=== PATIENT | female | born 1940 | race Caucasian/White ===

== ENCOUNTER 2019-06-07 20:17 | Observation (INO) | payer MEDICARE ==
[2019-06-07] MEDS ORDERED: METHYLPREDNISOLONE INJ 125 MG/2 ML SDV IV ONE (20:40)
[2019-06-07] MEDS ORDERED: EPINEPHRINE INJ/PF 1 MG/1 ML AMPULE IM ONE ×3 (20:41→20:42)
[2019-06-07] MEDS ORDERED: FAMOTIDINE INJ/PF 20 MG/2 ML SDV IV ONE (20:41)
[2019-06-07] MEDS ORDERED: DIPHENHYDRAMINE HCL 50 MG/ML VIAL IV ONE (20:41)
[2019-06-07] MEDS ORDERED: NORMAL SALINE 1000 ML 1,000 ML IV ONE (20:42)
--- NOTE | 2019-06-07 20:43 | ER Document Report ---
ED Allergic Reaction - General Chief Complaint: Allergic Reaction Stated Complaint: POSSIBLE ALLERGIC REACTION Time Seen by Provider: 06/07/19 20:39 Mode of Arrival: Ambulatory Information source: Patient TRAVEL OUTSIDE OF THE [place] IN LAST 30 DAYS: No - HPI Patient complains to provider of: Tongue swelling and difficulty breathing after eating shrimp. Onset: Just prior to arrival Onset/Duration: Sudden Quality of pain: No pain Pain Level: Denies Identified cause: Yes - Shrimp Food exposure: Shrimp Skin rash / itching: "Redness", "Hives" Swelling: Lip(s), Tongue, Throat Trouble swallowing / speaking: Severe Associated symptoms: Other - Difficulty breathing. Similar symptoms previously: Yes Recently seen / treated by doctor: No - Related Data Allergies/Adverse Reactions: morphine Adverse Reaction (Verified 06/07/19 20:45) shellfish derived Adverse Reaction (Verified 06/07/19 20:45) shrimp Adverse Reaction (Verified 06/07/19 20:45) Sulfa (Sulfonamide Antibiotics) Adverse Reaction (Verified 06/07/19 20:45) Past Medical History - General Information source: Patient - Social History Smoking Status: Never Smoker Family History: Reviewed & Not Pertinent Review of Systems - Review of Systems Constitutional: No symptoms reported EENT: Throat swelling, Mouth swelling, Other - Tongue swelling. Cardiovascular: No symptoms reported Respiratory: Short of breath Gastrointestinal: No symptoms reported Genitourinary: No symptoms reported Female Genitourinary: No symptoms reported Musculoskeletal: No symptoms reported Skin: No symptoms reported Hematologic/Lymphatic: No symptoms reported Neurological/Psychological: No symptoms reported -: Yes All other systems reviewed and negative Physical Exam - Vital signs Vitals: Resp Pulse Ox 19 92 06/07/19 20:20 06/07/19 20:20 Interpretation: Normal - General General appearance: Appears well, Alert In distress: Mild - HEENT Head: Normocephalic, Atraumatic Eyes: Normal Conjunctiva: Normal Cornea: Normal Extraocular movements intact: Yes Eyelashes: Normal Pupils: PERRL Mouth/Lips: Angioedema Mucous membranes: Normal Pharynx: Uvular edema, Other - Edema of the soft palate. Neck: Normal - Respiratory Respiratory status: No respiratory distress Chest status: Nontender Breath sounds: Normal Chest palpation: Normal - Cardiovascular Rhythm: Regular Heart sounds: Normal auscultation Murmur: No - Abdominal Inspection: Normal Distension: No distension Bowel sounds: Normal Tenderness: Nontender Organomegaly: No organomegaly - Back Back: Normal, Nontender - Extremities General upper extremity: Normal inspection, Nontender, Normal color, Normal ROM, Normal temperature General lower extremity: Normal inspection, Nontender, Normal color, Normal ROM, Normal temperature, Normal weight bearing. No: Jannie's sign - Neurological Neuro grossly intact: Yes Cognition: Normal Orientation: AAOx4 [place] Coma Scale Eye Opening: Spontaneous [place] Coma Scale Verbal: Oriented [place] Coma Scale Motor: Obeys Commands [place] Coma Scale Total: 15 Speech: Normal Motor strength normal: LUE, RUE, LLE, RLE Sensory: Normal - Psychological Associated symptoms: Normal affect, Normal mood - Skin Skin Temperature: Warm Skin Moisture: Dry Skin Color: Normal Course - Re-evaluation Re-evalutation: 06/07/19 22:33 On reevaluation patient is feeling much better. She will be admitted to the hospital for observation. - Vital Signs Vital signs: Temp Pulse Resp BP Pulse Ox 97.7 F 15 128/63 H 96 06/07/19 20:22 06/08/19 01:01 06/08/19 01:00 06/08/19 01:01 - Laboratory Result Diagrams: 06/07/19 20:10 06/07/19 20:10 Laboratory results interpreted by me: 06/07/19 06/07/19 20:10 20:10 WBC 11.5 H Lymphocytes % 45.1 H Absolute Lymphocytes 5.2 H Potassium 3.1 L Glucose 167 H - Transfer of Care Notes: 06/07/19 21:37 Patient will be admitted by the hospitalist on-call Dr. Ely for observation. Critical Care Note - Critical Care Note Total time excluding time spent on procedures (mins): 50 Discharge - Discharge Clinical Impression: Allergic reaction, Angioedema, Allergic reaction to food Condition: Stable Disposition: ADMITTED INPATIENT Admitting Provider: Jhoana (Hospitalist) Unit Admitted: [facility]
[2019-06-07 20:48] LABS: ABSOLUTE BASOPHILS # (AUTO) 0.1 10^3/uL (0.0-0.2); ABSOLUTE EOSINOPHILS # (AUTO) 0.6 10^3/uL (0.0-0.6); ABSOLUTE LYMPHOCYTES (AUTO) 5.2 10^3/uL (0.5-4.7); ABSOLUTE MONOCYTES (AUTO) 0.6 10^3/uL (0.1-1.4); BASOPHILS % (AUTO) 0.7 % (0-2); EOSINOPHILS % (AUTO) 5.3 % (0-6); HEMATOCRIT 41.5 % (36.0-47.0); HEMOGLOBIN 14.4 g/dL (12.0-15.5); LYMPHOCYTES % (AUTO) 45.1 % (13-45); MEAN CORPUSCULAR HGB CONC 34.5 g/dL (32.0-36.0); MEAN CORPUSCULAR VOLUME 90 fl (80-97); MONOCYTES % (AUTO) 5.4 % (3-13); PLATELET COUNT 202 10^3/uL (150-450); RED BLOOD COUNT 4.63 10^6/uL (3.72-5.28); RED CELL DISTRIBUTION WIDTH 12.5 % (11.5-14.0); SEGMENTED NEUTROPHILS % (AUTO) 43.5 % (42-78); TOTAL CELLS COUNTED % (AUTO) 100 %; WHITE BLOOD COUNT 11.5 10^3/uL (4.0-10.5)
[2019-06-07 20:58] LABS: ALANINE AMINOTRANSFERASE 35 U/L (9-52); ALKALINE PHOSPHATASE 62 U/L (38-126); ANION GAP 11 (5-19); ASPARTATE AMINO TRANSFERASE 34 U/L (14-36); BILIRUBIN,DIRECT 0.4 mg/dL (0.0-0.4); BILIRUBIN,TOTAL 0.6 mg/dL (0.2-1.3); BLOOD UREA NITROGEN 19 mg/dL (7-20); CALCIUM 9.6 mg/dL (8.4-10.2); CARBON DIOXIDE 27 mmol/L (22-30); CHLORIDE 100 mmol/L (98-107); GLUCOSE 167 mg/dL (75-110); POTASSIUM 3.1 mmol/L (3.6-5.0); SODIUM 137.5 mmol/L (137-145); TOTAL PROTEIN 6.7 g/dL (6.3-8.2)
[2019-06-07] MEDS ORDERED: ONDANSETRON HCL INJ/PF 4 MG/2 ML SDV ONE (20:58)
[2019-06-07] MEDS ORDERED: ONDANSETRON HCL INJ/PF 4 MG/2 ML SDV IV ONE (20:58)
[2019-06-07] MEDS ORDERED: MAGNESIUM HYDROXIDE SUSP 30 ML UDCUP PO PRN (21:40)
[2019-06-07] MEDS ORDERED: MAG HYDROX/AL HYDROX/SIMETH SUSP 30 ML UDCUP PO PRN (21:40)
[2019-06-07] MEDS ORDERED: ONDANSETRON HCL INJ/PF 4 MG/2 ML SDV IV PRN (21:40)
[2019-06-07] MEDS ORDERED: NALBUPHINE HCL INJ 10 MG/1 ML AMPULE IV PRN (21:48)
[2019-06-07] MEDS ORDERED: FAMOTIDINE INJ/PF 20 MG/2 ML SDV IV SCH (22:00)
[2019-06-07 22:16] LABS: INTERNATIONAL RATION (INR) 1.06; PROTHROMBIN TIME 13.8 SEC (11.4-15.4)
[2019-06-07 22:17] LABS: PARTIAL THROMBOPLASTIN TIME 24.2 SEC (23.5-35.8)
[2019-06-07] MEDS: HEPARIN SOD (PORCINE) 5,000 UNIT/ML 1 ML SYRINGE SUBCUT SCH (23:16)
--- NOTE | 2019-06-08 02:14 | PDOC H&P ---
History of Present Illness Admission Date/PCP: 06/07/2019 21:24 No local PCP Patient complains of: Allergic reaction History of Present Illness: OLGA ORDONEZ is a 78 year old female who presents the emergency room with an acute allergic reaction. Patient admits that she went out tonight with her family and friends and she had a flounder sandwich but also ate one shrimp. She acknowledges that she has a shellfish allergy. She admits that approximately an hour after eating while she was walking on the peer with her family she developed sudden severe swelling in her tongue and started experiencing severe dyspnea. She admits prior similar but much less severe episodes. She denies any other accompanying or associated signs or symptoms. She has not identified any additional aggravating or ameliorating factors for her allergic reaction. In the emergency room she was found to have severe angioedema of her tongue and posterior oropharynx including the uvula. She was treated with epinephrine, Solu-Medrol and Benadryl. Because of her severe reaction and incomplete resolution she was subsequently admitted to the observation status for further evaluation and treatment. Past Medical History Cardiac Medical History: Reports: Coronary Artery Disease, Hyperlipidema, Hypertension Pulmonary Medical History: Denies: Asthma, Chronic Obstructive Pulmonary Disease (COPD) EENT Medical History: Reports: Cataracts Denies: Ears - Hearing aids Neurological Medical History: Denies: Hemorrhagic CVA, Ischemic CVA, Seizures Endocrine Medical History: Denies: Diabetes Mellitus Type 1, Diabetes Mellitus Type 2, Hyperthyroidism, Hypothyroidism, Obesity Renal/ Medical History: Denies: Chronic Kidney Disease, Nephrolithiasis Malignancy Medical History: Reports: None GI Medical History: Denies: Cirrhosis, Hepatitis Musculoskeltal Medical History: Reports: Arthritis - Degenerative disc disease Denies: Fibromyalgia, Gout Skin Medical History: Denies: Eczema, Psoriasis Psychiatric Medical History: Denies: Alcohol Dependency, Substance Abuse, Tobacco Dependency Traumatic Medical History: Reports: None Hematology: Denies: Anemia, Bleeding Tendencies Infectious Medical History: Reports: None Past Surgical History Past Surgical History: Reports: Cardiac Catheterization, Cholecystectomy, Coronary Stent, Hysterectomy, Other Social History Information Source: Patient Lives with: Spouse/Significant other Smoking Status: Never Smoker Frequency of Alcohol Use: None Hx Recreational Drug Use: No Drugs: None Hx Prescription Drug Abuse: No - Advance Directive Resuscitation Status: Full Code Surrogate healthcare decision maker:: Hilda Milton Family History Family History: CAD, DM, Hypertension, Malignancy Parental Family History Reviewed: Yes Children Family History Reviewed: No Sibling(s) Family History Reviewed.: Yes Medication/Allergy Allergies/Adverse Reactions: morphine Adverse Reaction (Verified 06/07/19 20:45) shellfish derived Adverse Reaction (Verified 06/07/19 20:45) shrimp Adverse Reaction (Verified 06/07/19 20:45) Sulfa (Sulfonamide Antibiotics) Adverse Reaction (Verified 06/07/19 20:45) Review of Systems Constitutional: ABSENT: chills, fever(s) Eyes: ABSENT: visual disturbances, other - Eye pain Ears: ABSENT: hearing changes, other - Ear pain Nose, Mouth, and Throat: ABSENT: mouth pain, sore throat Cardiovascular: ABSENT: chest pain, edema, palpitations Respiratory: PRESENT: as per HPI, dyspnea. ABSENT: cough Gastrointestinal: ABSENT: abdominal pain, constipation, diarrhea, nausea, vomiting Genitourinary: ABSENT: dysuria, hematuria Musculoskeletal: ABSENT: back pain, joint swelling, muscle weakness Integumentary: PRESENT: as per HPI, other - Angioedema of her tongue and mouth. ABSENT: pruritus, rash Neurological: ABSENT: confusion, convulsions, focal weakness, memory loss, syncope Psychiatric: ABSENT: anxiety, depression Endocrine: ABSENT: cold intolerance, heat intolerance Hematologic/Lymphatic: ABSENT: easy bleeding, easy bruising Physical Exam Vital Signs: Temp Pulse Resp BP Pulse Ox 97.7 F 18 164/117 H 98 06/07/19 20:22 06/07/19 21:05 06/07/19 20:46 06/07/19 21:05 Intake & Output 06/05/19 06/06/19 06/07/19 23:59 23:59 23:59 Intake Total 1000 Balance 1000 Weight 68.4 kg General appearance: PRESENT: no acute distress, cooperative Head exam: PRESENT: atraumatic, normocephalic Eye exam: PRESENT: conjunctiva pink. ABSENT: conjunctival injection, scleral icterus Ear exam: PRESENT: normal external ear exam. ABSENT: bleeding, drainage Mouth exam: PRESENT: dry mucosa, neck supple, tongue midline, other - Glossal angioedema 1+ Throat exam: PRESENT: other - Minimal posterior pharyngeal angioedema change at this time. ABSENT: post pharyngeal erythema Neck exam: ABSENT: JVD, thyromegaly, tracheal deviation Respiratory exam: PRESENT: clear to auscultation fartun, symmetrical, unlabored Cardiovascular exam: PRESENT: RRR. ABSENT: clicks, gallop, rubs Pulses: PRESENT: normal radial pulses, normal dorsalis pedis pul GI/Abdominal exam: PRESENT: normal bowel sounds, soft Rectal exam: PRESENT: deferred Extremities exam: ABSENT: joint swelling, pedal edema Musculoskeletal exam: PRESENT: full ROM, normal inspection. ABSENT: tenderness Neurological exam: PRESENT: alert, oriented to person, oriented to place, oriented to time, oriented to situation, CN II-XII grossly intact. ABSENT: motor sensory deficit Psychiatric exam: PRESENT: appropriate affect, normal mood Skin exam: PRESENT: dry, intact, warm, other - Angioedema of the tongue is noted. ABSENT: jaundice, rash Results Laboratory Results: 06/07/19 20:10 06/07/19 20:10 06/07/19 06/07/19 20:10 20:10 WBC 11.5 H RBC 4.63 Hgb 14.4 Hct 41.5 MCV 90 MCH 31.0 MCHC 34.5 RDW 12.5 Plt Count 202 Seg Neutrophils % 43.5 Lymphocytes % 45.1 H Monocytes % 5.4 Eosinophils % 5.3 Basophils % 0.7 Absolute Neutrophils 5.0 Absolute Lymphocytes 5.2 H Absolute Monocytes 0.6 Absolute Eosinophils 0.6 Absolute Basophils 0.1 Sodium 137.5 Potassium 3.1 L Chloride 100 Carbon Dioxide 27 Anion Gap 11 BUN 19 Creatinine 0.82 Est GFR ( Amer) > 60 Est GFR (Non-Af Amer) > 60 Glucose 167 H Calcium 9.6 Total Bilirubin 0.6 AST 34 ALT 35 Alkaline Phosphatase 62 Total Protein 6.7 Albumin 4.0 Assessment and Plan - Diagnosis (1) Angioedema due to seafood allergy Qualifiers: Encounter type: initial encounter Qualified Code(s): T78.3XXA - Angioneurotic edema, initial encounter Is this a current diagnosis for this admission?: Yes Plan: Patient is placed in observation status. She will be monitored closely for any airway complications that might occur due to her angioedema. She will be treate d with Benadryl 25 mg IV every 4 hours and Solu-Medrol 40 mg IV every 4 hours. (2) HTN (hypertension) Qualifiers: Hypertension type: essential hypertension Qualified Code(s): I10 - Essential (primary) hypertension Is this a current diagnosis for this admission?: Yes Plan: Patient be continued on her usual antihypertensive medications. Her blood pressure will be observed closely throughout her hospital course. (3) HLD (hyperlipidemia) Qualifiers: Hyperlipidemia type: unspecified Qualified Code(s): E78.5 - Hyperlipidemia, unspecified Is this a current diagnosis for this admission?: Yes Plan: Patient be continued on her usual hyperlipidemia regimen. (4) CAD (coronary artery disease) Qualifiers: Coronary Disease-Associated Artery/Lesion type: [place] artery [place] vs. transplanted heart: [place] heart Associated angina: without angina Qualified Code(s): I25.10 - Atherosclerotic heart disease of [place] coronary artery without angina pectoris Is this a current diagnosis for this admission?: Yes Plan: Patient be treated with her usual coronary artery disease medical regimen. She will be on a heart healthy diet during her hospital stay. - Time Time Spent with patient: 25-34 minutes Medications reviewed and adjusted accordingly: Yes Anticipated discharge: Home - Inpatient Certification Based on my medical assessment, after consideration of the patient's comorbidities, presenting symptoms, or acuity I expect that the services needed warrant INPATIENT care.: No I certify that my determination is in accordance with my understanding of Medicare's requirements for reasonable and necessary INPATIENT services [42 CFR 412.3e].: No Medical Necessity: Need Close Monitoring Due to Risk of Patient Decompensation, Need For Continuous Telemetry Monitoring, Risk of Complication if Not Cared For in Hospital
--- NOTE | 2019-06-08 02:16 | ADVANCED CARE ---
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 Resuscitation Status: Full Code Discussion: After several minutes of discussion the patient was concluded that she would prefer to be full code for resuscitation status throughout this hospital stay. Furthermore she has designated Hilda Milton as her surrogate medical decision- maker. Care Planning Goals: 1. Patient is full CODE STATUS for the current hospitalization. 2. Hilda Milton is the patient's designated surrogate medical decision-maker. Document(s) Completed: The following entries will be made to the patient's permanent medical record, current medical record and current orders via EMR entry: 1. Patient is full CODE STATUS for the current hospitalization. 2. Hilda Milton is the patient's designated surrogate medical decision-maker. Time Spent: 16 minutes
[2019-06-08] MEDS: METHYLPREDNISOLONE INJ 40 MG/1 ML SDV IV SCH ×2 (02:56→05:39)
[2019-06-08] MEDS: DIPHENHYDRAMINE HCL 50 MG/ML VIAL IV SCH ×2 (02:57→05:39)
[2019-06-08] MEDS: HEPARIN SOD (PORCINE) 5,000 UNIT/ML 1 ML SYRINGE SUBCUT SCH (05:38)
[2019-06-08 05:52] LABS: HEMATOCRIT 35.9 % (36.0-47.0); HEMOGLOBIN 12.5 g/dL (12.0-15.5); MEAN CORPUSCULAR HGB CONC 34.8 g/dL (32.0-36.0); MEAN CORPUSCULAR VOLUME 89 fl (80-97); PLATELET COUNT 160 10^3/uL (150-450); RED BLOOD COUNT 4.03 10^6/uL (3.72-5.28); RED CELL DISTRIBUTION WIDTH 12.5 % (11.5-14.0)
[2019-06-08 06:14] LABS: ALANINE AMINOTRANSFERASE 34 U/L (9-52); ALBUMIN 3.4 g/dL (3.5-5.0); ALKALINE PHOSPHATASE 54 U/L (38-126); ANION GAP 8 (5-19); ASPARTATE AMINO TRANSFERASE 44 U/L (14-36); BILIRUBIN,DIRECT 0.3 mg/dL (0.0-0.4); BILIRUBIN,TOTAL 0.5 mg/dL (0.2-1.3); BLOOD UREA NITROGEN 19 mg/dL (7-20); CALCIUM 9.4 mg/dL (8.4-10.2); CARBON DIOXIDE 27 mmol/L (22-30); CHLORIDE 104 mmol/L (98-107); GLUCOSE 178 mg/dL (75-110); POTASSIUM 3.4 mmol/L (3.6-5.0); SODIUM 139.3 mmol/L (137-145); TOTAL PROTEIN 5.6 g/dL (6.3-8.2)
--- NOTE | 2019-06-08 06:49 | PDOC DISCHARGE SUMMARY ---
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 She is therefore discharged home in improved and stable condition. (2) HTN (hypertension) Is this a current diagnosis for this admission?: Yes Summary: This problem has been stable. (3) HLD (hyperlipidemia) Is this a current diagnosis for this admission?: Yes Summary: Problem has been stable. (4) CAD (coronary artery disease) Is this a current diagnosis for this admission?: Yes Summary: Problem has been stable. - Additional Information Resuscitation Status: Full Code Discharge Diet: As Tolerated Discharge Activity: Activity As Tolerated Prescriptions: Diphenhydramine HCl [Benadryl 50 mg Capsule] 1 cap PO Q6 PRN 2 Days #8 capsule PRN Reason: Famotidine [Pepcid 10 mg Tablet] 10 mg PO Q6H 2 Days #8 tablet Prednisone [Deltasone 20 mg Tablet] 20 mg PO BIDBS 2 Days #4 tablet Home Medications: Diphenhydramine HCl [Benadryl 50 mg Capsule] 1 cap PO Q6 PRN 2 Days #8 capsule 06/08/19 Famotidine [Pepcid 10 mg Tablet] 10 mg PO Q6H 2 Days #8 tablet 06/08/19 Prednisone [Deltasone 20 mg Tablet] 20 mg PO BIDBS 2 Days #4 tablet 06/08/19 History of Present Illness Patient complains of: Allergic reaction History of Present Illness: OLGA ORDONEZ is a 78 year old female who presents the emergency room with an acute allergic reaction. Patient admits that she went out tonight with her family and friends and she had a flounder sandwich but also ate one shrimp. She acknowledges that she has a shellfish allergy. She admits that approximately an hour after eating while she was walking on the peer with her family she developed sudden severe swelling in her tongue and started experiencing severe dyspnea. She admits prior similar but much less severe episodes. She denies any other accompanying or associated signs or symptoms. She has not identified any additional aggravating or ameliorating factors for her allergic reaction. In the emergency room she was found to have severe angioedema of her tongue and posterior oropharynx including the uvula. She was treated with epinephrine, Solu-Medrol and Benadryl. Because of her severe reaction and incomplete resolution she was subsequently admitted to the observation status for further evaluation and treatment. Hospital Course Hospital Course: Patient was treated in the ER and was continued on Benadryl and Solu-Medrol administered intravenously every 4 hours. Within 8 hours she had essentially complete resolution of her symptoms. She was able to be up and ambulate, eat and drink and did not require supplemental oxygen. Because of her marked improvement and her desire to be discharged as soon as possible she was released to home in improved and stable condition. Physical Exam Vital Signs: Temp Pulse Resp BP Pulse Ox 97.7 F 15 138/63 H 97 06/08/19 04:05 06/08/19 05:01 06/08/19 05:01 06/08/19 05:01 Intake & Output 06/06/19 06/07/19 06/08/19 23:59 23:59 23:59 Intake Total 1000 0 Balance 1000 0 Weight 68.4 kg General appearance: PRESENT: no acute distress, cooperative Head exam: PRESENT: atraumatic, normocephalic Mouth exam: PRESENT: moist - Mucosa, neck supple, tongue midline, other - Glossal swelling resolved Results Laboratory Results: 06/08/19 05:42 06/08/19 05:42 06/07/19 06/07/19 06/08/19 20:10 20:10 05:42 WBC 11.5 H 12.0 H RBC 4.63 4.03 Hgb 14.4 12.5 Hct 41.5 35.9 L MCV 90 89 MCH 31.0 31.0 MCHC 34.5 34.8 RDW 12.5 12.5 Plt Count 202 160 Seg Neutrophils % 43.5 Lymphocytes % 45.1 H Monocytes % 5.4 Eosinophils % 5.3 Basophils % 0.7 Absolute Neutrophils 5.0 Absolute Lymphocytes 5.2 H Absolute Monocytes 0.6 Absolute Eosinophils 0.6 Absolute Basophils 0.1 Sodium 137.5 Potassium 3.1 L Chloride 100 Carbon Dioxide 27 Anion Gap 11 BUN 19 Creatinine 0.82 Est GFR ( Amer) > 60 Est GFR (Non-Af Amer) > 60 Glucose 167 H Calcium 9.6 Magnesium Total Bilirubin 0.6 AST 34 ALT 35 Alkaline Phosphatase 62 Total Protein 6.7 Albumin 4.0 06/08/19 05:42 WBC RBC Hgb Hct MCV MCH MCHC RDW Plt Count Seg Neutrophils % Lymphocytes % Monocytes % Eosinophils % Basophils % Absolute Neutrophils Absolute Lymphocytes Absolute Monocytes Absolute Eosinophils Absolute Basophils Sodium 139.3 Potassium 3.4 L Chloride 104 Carbon Dioxide 27 Anion Gap 8 BUN 19 Creatinine 0.72 Est GFR ( Amer) > 60 Est GFR (Non-Af Amer) > 60 Glucose 178 H Calcium 9.4 Magnesium 1.7 Total Bilirubin 0.5 AST 44 H ALT 34 Alkaline Phosphatase 54 Total Protein 5.6 L Albumin 3.4 L Qualifiers - * PATIENT BEING DISCHARGED WITH ANY OF THE FOLLOWING DIAGNOSIS: No Acute Heart Failure - Is this a Heart Failure Patient?: No Plan Discharge Plan: Discharged home in improved and stable condition
[2019-06-08 07:17] VITALS: BP 144/64
[2019-06-08] MEDS ORDERED: DOCUSATE SODIUM 100 MG/10 ML UDC PO SCH (10:00)
== END 2019-06-08 06:45 | disposition home or self-care (01) ==
LOC: ER 20:17 → INTOOBSV 22:05 → EH 22:05
PROVIDERS: ADMIT Emergency Medicine; ATTEND Emergency Medicine
DX: T78.3XXA Angioneurotic edema, initial encounter (principal); T78.1XXA Other adverse food reactions, not elsewhere classified, initial encounter; I10 Essential (primary) hypertension; E78.5 Hyperlipidemia, unspecified; I25.10 Atherosclerotic heart disease of native coronary artery without angina pectoris; Z79.899 Other long term (current) drug therapy; Z91.013 Allergy to seafood; Z88.6 Allergy status to analgesic agent; Z88.1 Allergy status to other antibiotic agents
CPT/HCPCS: 99291; 96372; 96361; 96374; 96375; 36415 ×2; 83735; 85025; 85027; 85610; 85730; 80053 ×2; G0378 ×2; J1644 ×2; J1200 ×2; J0171; J2920; J2930; J3490; J2405; J7030; S0028